=== PATIENT | male | born 1950 | race Asian ===

== ENCOUNTER 2016-12-24 14:09 | Inpatient (IN) | payer OTHER, MEDICAID ==
[~2016-12-24] VITALS: Ht 167.6 cm; Wt 80.7 kg
[2016-12-24 14:16] VITALS: BP 151/96
--- NOTE | 2016-12-24 16:32 | NUR ---
PATIENT TO BED 3 AT THIS TIME.
--- NOTE | 2016-12-24 16:48 | NUR ---
PATIENT PRESENTS TO ED WITH RIGHT SCAPULA PAIN RADIATING TO RUE . PT STATES . DENIES N/V/D; SKIN IS PINK/WARM/DRY; AAOX4 WITH EVEN AND STEADY GAIT; LUNGS CLEAR BL; HR EVEN AND REGULAR; PT DENIES ANY FEVER, CP, SOB, OR COUGH AT THIS TIME; PATIENT STATES PAIN OF 5/10 AT THIS TIME; VSS; PATIENT POSITIONED FOR COMFORT; HOB ELEVATED; BEDRAILS UP X2; BED DOWN. ER MD MADE AWARE OF PT STATUS.
[2016-12-24 17:00] LABS: APPEARANCE,URINE CLEAR (CLEAR); BILIRUBIN,URINE NEGATIVE (NEGATIVE); BLOOD, URINE NEGATIVE (NEGATIVE); COLOR,URINE YELLOW (YELLOW); LEUKOCYTE ESTERASE ,URINE NEGATIVE (NEGATIVE); NITRITE, URINE NEGATIVE (NEGATIVE); PROTEIN,URINE NEGATIVE (NEGATIVE); UGLUCOSE NEGATIVE (NEGATIVE); UROBILINOGEN,URINE 0.2 EU/dL (0.2 - 1)
[2016-12-24] MEDS ORDERED: ASPIRIN 81 MG TAB.CHEW PO ONE (17:00)
[2016-12-24] MEDS ORDERED: NITROGLYCERIN 0.4 MG TAB SL ONE (17:00)
--- NOTE | 2016-12-24 17:00 | NUR ---
EKG AT BEDSIDE
--- NOTE | 2016-12-24 17:09 | NUR ---
XRAY AT BEDSIDE
--- NOTE | 2016-12-24 17:21 | NUR ---
BLOOD PRESSURE 124/78 BEFORE NITRO ADMINISTRATION, VSS, WILL CONTINUE TO MONITOR
[2016-12-24 17:48] LABS: BASOPHILS # (AUTO) 0.2 K/uL (0.00-0.22); EOSINOPHILS # (AUTO) 0.2 K/uL (0-0.4); HEMATOCRIT 46.5 % (36-52); HEMOGLOBIN 14.7 g/dL (12.0-18.0); LYMPHOCYTES # (AUTO) 1.3 K/uL (2.0-11.5); LYMPHOCYTES % (AUTO) 20.3 % (20.5-51.1); MEAN CORPUSCULAR HEMOGLOBIN 27 pg (27-31); MEAN CORPUSCULAR HGB CONC 32 g/dL (33-37); MEAN CORPUSCULAR VOLUME 86 fL (80-94); MONOCYTES # (AUTO) 0.4 K/uL (0.8-1.0); NEUTROPHILS # (AUTO) 4.3 K/uL (1.8-7.7); PLATELET COUNT (AUTO) 274 K/uL (140-450); RED BLOOD CELL COUNT(AUTO) 5.38 MIL/uL (4.20-6.10); RED CELL DISTRIBUTION WIDTH 13.4 % (11.6-13.7); WHITE BLOOD COUNT (AUTO) 6.4 K/uL (4.8-10.8)
[2016-12-24 17:58] LABS: INR 1.1 (0.8-1.2); PARTIAL THROMBOPLASTIN TIME 25.9 secs (22-35.6); PROTHROMBIN TIME 10.8 secs (10.8-13.4)
[2016-12-24 18:01] LABS: ANION GAP 12.1 (8-16); CALCIUM 8.9 mg/dL (8.5-10.1); CARBON DIOXIDE 28.4 mmol/L (21-32); POTASSIUM 4.5 mmol/L (3.5-5.1); TOTAL BILIRUBIN 0.8 mg/dL (0.0-1.0); TOTAL PROTEIN, SERUM 7.4 g/dL (6.4-8.2)
[2016-12-24 18:12] LABS: ALBUMIN 3.7 g/dL (3.4-5.0); CREATININE 1.2 mg/dL (0.6-1.3)
--- NOTE | 2016-12-24 18:15 | NUR ---
Patient appears to be resting comfortably in bed. Vital Signs within normal limits. Respirations even and unlabored.
[2016-12-24] MEDS ORDERED: SUCR1TAB35 PO (18:45)
[2016-12-24] MEDS ORDERED: OMEP40EC14 PO (18:46)
[2016-12-24] MEDS ORDERED: ASPI81CT2 PO (18:48)
[2016-12-24] MEDS ORDERED: ATOR20TA PO (18:49)
[2016-12-24] MEDS ORDERED: LOSA50TA39 PO (18:50)
[2016-12-24] MEDS ORDERED: [UNRECOGNIZED DRUG - CODE] PO (18:51)
--- NOTE | 2016-12-24 19:10 | NUR ---
Patient will be admitted to care of DR RECINOS. Admited to TELE. Will go to room 111-A. Belongings list completed. Report to JUDITH VENTURA.
[2016-12-24] MEDS ORDERED: LORazepam 1 MG TAB PO PRN (19:30)
[2016-12-24] MEDS ORDERED: ALUMINUM HYD/MAG/SIMETHICONE 30 ML UDC PO PRN (19:30)
[2016-12-24] MEDS ORDERED: ZOLPIDEM 5 MG TAB PO PRN (19:30)
[2016-12-24] MEDS ORDERED: NITROGLYCERIN 0.4 MG TAB SL PRN (19:30)
[2016-12-24] MEDS ORDERED: MORPHINE SULFATE 2 MG/ML SYR IVP PRN (19:30)
[2016-12-24] MEDS ORDERED: ONDANSETRON 4 MG/2 ML VIAL IVP PRN (19:30)
[2016-12-24] MEDS ORDERED: HYDROcodone/APAP 5/325 MG 1 TAB TAB PO PRN ×2 (19:30)
--- NOTE | 2016-12-24 19:30 | NUR ---
ADMITTED THIS 66 YEAR OLD MALE PER EFREN FROM ER WITH CC OF RT UPPER BACK PAIN AND EPIGASTRIC PAIN, ASSESSMENT DONE, SERBIAN SPEAKING BUT CAN UNDERSTAND AND SPEAK GREENLAND[place], VITAL SIGNS STABLE, DENIES ANY PAIN AT THIS TIME, ORIENTED TO ROOM AND CALL LIGHT, SAFETY MEASURES IN PLACE, CALL LIGHT WITHIN REACH.
[2016-12-24 20:00] VITALS: BP 116/71
--- NOTE | 2016-12-24 21:40 | NUR ---
PT AMBULATORY TO [facility] WITH STEADY GAIT, ALL NEEDS ATTENDED.
[2016-12-25] VITALS: BP 117/71
--- NOTE | 2016-12-25 | NUR ---
PT AWAKE WATCHING MOVIE ON HIS TABLET, VITAL SIGNS STABLE, DENIES ANY PAIN, CONTINUE TO MONITOR CLOSELY.
[2016-12-25 01:49] LABS: CREATINE KINASE MB 0.2 ng/mL (0-3.6)
--- NOTE | 2016-12-25 01:50 | NUR ---
PT STILL AWAKE WATCHING MOVIE ON HIS TABLET, OFFERED SLEEPING PILL BUT PT REFUSED SAID "IM JASEN", DENIES ANY PAIN, MONITORED CLOSELY.
[2016-12-25] MEDS: ACETAMINOPHEN 325 MG TAB PO PRN ×2 (03:09→12:53)
[2016-12-25 04:00] VITALS: BP 134/76
--- NOTE | 2016-12-25 04:00 | NUR ---
PT SLEEPING, VITAL SIGNS STABLE, DENIES ANY PAIN, MONITORED CLOSELY.
[2016-12-25 06:23] LABS: BASOPHILS # (AUTO) 0.2 K/uL (0.00-0.22); BASOPHILS % (AUTO) 2.5 % (0.0-2.0); EOSINOPHILS # (AUTO) 0.4 K/uL (0-0.4); HEMATOCRIT 43.1 % (36-52); LYMPHOCYTES % (AUTO) 32.7 % (20.5-51.1); MEAN CORPUSCULAR HEMOGLOBIN 28 pg (27-31); MEAN CORPUSCULAR HGB CONC 33 g/dL (33-37); MEAN CORPUSCULAR VOLUME 87 fL (80-94); MONOCYTES # (AUTO) 0.5 K/uL (0.8-1.0); MONOCYTES % (AUTO) 8.6 % (1.7-9.3); NEUTROPHILS # (AUTO) 3.1 K/uL (1.8-7.7); NEUTROPHILS % (AUTO) 50.2 % (42.2-75.2); PLATELET COUNT (AUTO) 271 K/uL (140-450); RED BLOOD CELL COUNT(AUTO) 4.96 MIL/uL (4.20-6.10); RED CELL DISTRIBUTION WIDTH 13.3 % (11.6-13.7); WHITE BLOOD COUNT (AUTO) 6.2 K/uL (4.8-10.8)
[2016-12-25 06:37] LABS: ANION GAP 11.2 (8-16); CALCIUM 8.6 mg/dL (8.5-10.1); CARBON DIOXIDE 28.1 mmol/L (21-32); CREATININE 1.2 mg/dL (0.6-1.3); POTASSIUM 4.3 mmol/L (3.5-5.1)
[2016-12-25 06:55] LABS: MAGNESIUM 2.2 mg/dL (1.8-2.4); PHOSPHORUS 3.9 mg/dL (2.5-4.9)
--- NOTE | 2016-12-25 07:25 | NUR ---
PT AWAKE, NO SIGNS OF DISTRESS, REPORT GIVEN TO AUDREY THACKER FOR CONTINUITY OF CARE.
--- NOTE | 2016-12-25 07:26 | NUR ---
RECEIVED PT FROM THE EXT JS DEVELOPER NURSE. PT IS AWAKE AND ORIENTED. INTRODUCED MYSELF AND UPDATED THE BOARD. PT IS 66/Y GUAMAN[place] MALE. SPEAKS SOME ARMENIAN. V/S WITHIN NORMAL RANGE. AMBULATORY. HE WAS UP AND ABOUT WASHING HIS FACE AND BRUSHING TEETH. SKIN INTACT. IV ON L AC 20G SL. WAITING ON 3RD TROPONIN LEVEL. LAST 2 NEGATIVE. DENIES ANY PAIN. WILL CONTINUE TO MONITOR PT.
[2016-12-25 08:00] VITALS: BP 134/96
[2016-12-25] MEDS: DOCUSATE SODIUM 100 MG GELCAP PO SCH (08:16)
--- NOTE | 2016-12-25 08:17 | NUR ---
MORNING MEDS ADMINISTERED. PT TOLERATED WELL. ATE 100% OF BREAKFAST. WILL CONTINUE TO MONITOR PT.
--- NOTE | 2016-12-25 08:25 | NUR ---
PATIENT HAS BEEN SCREENED AND CATEGORIZED MODERATE NUTRITION RISK. PATIENT WILL BE SEEN WITHIN 3-5 DAYS OF ADMISSION. 12/27/16-12/29/[address]
[2016-12-25 09:41] LABS: CREATINE KINASE MB 0.3 ng/mL (0-3.6)
--- NOTE | 2016-12-25 10:23 | NUR ---
PT SLEEPING SOUNDLY. NO SIGNS OF DISTRESS. WILL CONTINUE TO MONITOR PT.
[2016-12-25 12:00] VITALS: BP 139/95
--- NOTE | 2016-12-25 12:53 | NUR ---
ADMINISTERED TYLENOL PER PT'S REQUEST. PT STATES HE HAS A CHRIS 3-10/07. WILL CONTINUE TO MONITOR PT.
--- NOTE | 2016-12-25 15:20 | NUR ---
DR. RECINOS CAME AND SAW PT. ORDERED CARDIO CONSULT AND U/S OF THE HEART. [employer] TECH HERE TO DO. AFTER THE TEST AND CONSULT, PER MD, HE CAN BE DISCHARGED.
[2016-12-25] MEDS ORDERED: MECLIZINE 25 MG TAB PO PRN (15:30)
[2016-12-25 16:00] VITALS: BP 122/77
--- NOTE | 2016-12-25 17:59 | NUR ---
PT IS RESTING COMFORTABLY IN BED, WATCHING TV. NO COMPLAINTS AT THIS TIME. WILL CONTINUE TO MONITOR PT.
--- NOTE | 2016-12-25 19:15 | NUR ---
ENDORSED PT TO THE DRILLER MACHINE NURSE AT BEDSIDE FOR CONTINUITY OF CARE. PT IS IN STABLE CONDITION.
--- NOTE | 2016-12-25 19:30 | NUR ---
RECEIVED REPORT FROM AM NURSE. PT RESTING IN BED, AOX4, ABLE TO VERBALIZE NEEDS. PT DENIES CHEST PAIN, SOB OR S/S OF ACUTE DISTRESS. TINT LAYER IN PLACE. IV ACCESS ASYMPTOMATIC, PATENT AND INTACT. SALINE LOCKED. DISCUSSED AND REVIEWED PLAN OF CARE WITH PT. PT VERBALIZED UNDERSTANDING. SAFETY MEASURES ENSURED. CALL LIGHT WITHIN REACH. WILL CONTINUE TO MONITOR.
[2016-12-25 20:00] VITALS: BP 130/94
--- NOTE | 2016-12-25 20:54 | NUR ---
ADMINISTERED DUE MEDICATION WITH EDUCATION. PT VERBALIZED UNDERSTANDING, TOLERATED MED WELL. SAFETY MEASURES ENSURED. CALL LIGHT WITHIN REACH. WILL CONTINUE TO MONITOR.
[2016-12-26] VITALS: BP 102/44
[2016-12-26] MEDS: ACETAMINOPHEN 325 MG TAB PO PRN
--- NOTE | 2016-12-26 | NUR ---
VS NOTED. CONDITION STABLE. ALL NEEDS MET. SAFETY MEASURES ENSURED. CALL LIGHT WITHIN REACH. WILL CONTINUE TO MONITOR.
[2016-12-26 04:00] VITALS: BP 126/80
--- NOTE | 2016-12-26 04:15 | NUR ---
VS NOTED. CONDITION STABLE. ALL NEEDS MET. SAFETY MEASURES ENSURED. CALL LIGHT WITHIN REACH. WILL CONTINUE TO MONITOR.
[2016-12-26 06:56] LABS: BASOPHILS # (AUTO) 0.2 K/uL (0.00-0.22); BASOPHILS % (AUTO) 2.3 % (0.0-2.0); EOSINOPHILS # (AUTO) 0.3 K/uL (0-0.4); EOSINOPHILS % (AUTO) 4.7 % (0.0-4.0); HEMATOCRIT 45.1 % (36-52); HEMOGLOBIN 14.6 g/dL (12.0-18.0); LYMPHOCYTES # (AUTO) 2.5 K/uL (2.0-11.5); LYMPHOCYTES % (AUTO) 37.3 % (20.5-51.1); MEAN CORPUSCULAR HEMOGLOBIN 28 pg (27-31); MEAN CORPUSCULAR HGB CONC 32 g/dL (33-37); MEAN CORPUSCULAR VOLUME 87 fL (80-94); MONOCYTES # (AUTO) 0.6 K/uL (0.8-1.0); MONOCYTES % (AUTO) 8.6 % (1.7-9.3); NEUTROPHILS # (AUTO) 3.1 K/uL (1.8-7.7); NEUTROPHILS % (AUTO) 47.1 % (42.2-75.2); PLATELET COUNT (AUTO) 288 K/uL (140-450); RED BLOOD CELL COUNT(AUTO) 5.18 MIL/uL (4.20-6.10); RED CELL DISTRIBUTION WIDTH 13.1 % (11.6-13.7); WHITE BLOOD COUNT (AUTO) 6.7 K/uL (4.8-10.8)
[2016-12-26 07:07] LABS: ANION GAP 10.8 (8-16); CARBON DIOXIDE 28.5 mmol/L (21-32); CREATININE 1.3 mg/dL (0.7-1.3); POTASSIUM 4.3 mmol/L (3.5-5.1)
--- NOTE | 2016-12-26 07:35 | NUR ---
ENDORSED PLAN OF CARE TO AM NURSE. CONDITION STABLE.
--- NOTE | 2016-12-26 07:36 | NUR ---
RECEIVED REPORT FROM PM NURSE. PT SITTING IN BED, AOX4, ABLE TO VERBALIZE NEEDS. DENIES CHEST PAIN. NO S/SX OF DISTRESS. NO SOB NOTED. MAINTENANCE GROUNDSKEEPER IN PLACE. WITH AN IV ON L AC 20 G, SALINE LOCKED, PATENT AND INTACT. DISCUSSED WITH PT THE PLAN OF CARE. SAFETY CHECKS IN PLACE. CALL LIGHT WITHIN REACH. WILL CONTINUE TO MONITOR FOR ANY CHANGES.
[2016-12-26 08:00] VITALS: BP 124/80
[2016-12-26] MEDS: DOCUSATE SODIUM 100 MG GELCAP PO SCH (09:51)
--- NOTE | 2016-12-26 09:53 | NUR ---
DUE MEDS GIVEN AND EDUCATED PT ON THE MEDICATION. WILL CONTINUE TO MONITOR. ALL NEEDS ATTENDED. CALL LIGHT WITHIN REACH.
[2016-12-26 12:00] VITALS: BP 128/72
--- NOTE | 2016-12-26 12:30 | NUR ---
PATIENT SEEN ON BED TALKING WITH AT BEDSIDE. WILL CONTINUE TO MONITOR. ALL NEEDS ATTENDED. CALL LIGHT WITHIN REACH. WILL CONTINUE TO MONITOR FOR ANY CHANGES.
--- NOTE | 2016-12-26 15:15 | NUR ---
MESSAGE LEFT TO BETO (DR. GABRIEL'S SALESPERSON FLORIST SUPPLIES) REGARDING THE CONSULT. AWAITING FOR CALL BACK.
[2016-12-26 16:00] VITALS: BP 116/69
--- NOTE | 2016-12-26 16:11 | NUR ---
SPOKE WITH DR. GABRIEL AND NOTIFIED WITH THE NEURO CONSULT. STATED HE IS ALREADY AWARE AND WILL SEE PT TODAY.
--- NOTE | 2016-12-26 19:20 | NUR ---
ENDORSED TO SHOVEL LOG LOADER OPERATOR FOR CONTINUITY OF CARE.
--- NOTE | 2016-12-26 19:30 | NUR ---
RECEIVED REPORT FROM AM NURSE. PT RESTING IN BED, AOX4, ABLE TO VERBALIZE NEEDS. PT DENIES CHEST PAIN, SOB OR S/S OF ACUTE DISTRESS. MATERIALS HANDLING COORDINATOR IN PLACE. IV ACCESS ASYMPTOMATIC, PATENT AND INTACT. SALINE LOCKED. DISCUSSED AND REVIEWED PLAN OF CARE WITH PT. PT VERBALIZED UNDERSTANDING. SAFETY MEASURES ENSURED. CALL LIGHT WITHIN REACH. WILL CONTINUE TO MONITOR.
[2016-12-26 20:00] VITALS: BP 100/75
--- NOTE | 2016-12-26 21:23 | NUR ---
ADMINISTERED DUE MEDICATION WITH EDUCATION. PT VERBALIZED UNDERSTANDING, TOLERATED MED WELL. ALL NEEDS MET. SAFETY MEASURES ENSURED. CALL LIGHT WITHIN REACH. WILL CONTINUE TO MONITOR.
[2016-12-27] VITALS: BP 124/81
--- NOTE | 2016-12-27 00:10 | NUR ---
PT RESTING COMFORTABLY IN BED. ALL NEEDS MET. NO S/S OF ACUTE DISTRESS. SAFETY MEASURES ENSURED. CALL LIGHT WITHIN REACH.
[2016-12-27 04:00] VITALS: BP 104/71
--- NOTE | 2016-12-27 04:13 | NUR ---
CONDITION STABLE. DENIES PAIN. ALL NEEDS MET. SAFETY MEASURES ENSURED. CALL LIGHT WITHIN REACH. WILL CONTINUE TO MONITOR.
--- NOTE | 2016-12-27 07:27 | NUR ---
ENDORSED PLAN OF CARE TO AM NURSE. CONDITION STABLE.
--- NOTE | 2016-12-27 07:29 | NUR ---
RECEIVED PT IN BED. AWAKE. ALERT ORIENTED X4. NO SOB NOTED. DENIES ANY PAIN OR DISCOMFORT AT THIS TIME. POSITIVE BOWEL SOUNDS NOTED ON FOUR QUADRANTS. PT AMBULATORY. SAFETY PRECAUTION IN PLACE. CALL LIGHT WITHIN REACH.
[2016-12-27 08:00] VITALS: BP 109/76
[2016-12-27] MEDS: DOCUSATE SODIUM 100 MG GELCAP PO SCH (08:37)
[2016-12-27 12:00] VITALS: BP 111/83
--- NOTE | 2016-12-27 13:04 | NUR ---
ZOHRA OF PATIENT CAME TO SEE PT. INQUIRED ABOUT WHEN PT IS GOING HOME. ZOHRA MADE AWARE THAT WE ARE STILL WAITING FOR DR. RECINOS TO SEE PT, BEFORE DISCHARGE ORDERS CAN BE MADE. VERBALIZED UNDERSTANDING.
[2016-12-27 16:00] VITALS: BP 119/91
--- NOTE | 2016-12-27 19:26 | NUR ---
PT CLEARED FOR DISCHARGE. DISCHARGE INSTRUCTIONS PROVIDED. PT VERBALIZED UNDERSTANDING. IV TAKEN OUT. TIP INTACT. NO S/S OF ACUTE DISTRESS. PT DENIES PAIN. PT TAKEN OFF UNIT. PT REMAINS STABLE.
== END 2016-12-27 19:25 | disposition home or self-care (01) | DRG 313 ==
LOC: MED 14:09 → MTU 19:29
PROVIDERS: ADMIT Preventive Medicine Preventive Medicine/Occupational Environmental Medicine; ATTEND Preventive Medicine Preventive Medicine/Occupational Environmental Medicine
DX: R07.89 Other chest pain (principal); I25.110 Atherosclerotic heart disease of native coronary artery with unstable angina pectoris; E78.5 Hyperlipidemia, unspecified; I10 Essential (primary) hypertension; K21.9 Gastro-esophageal reflux disease without esophagitis; R51 Headache; R42 Dizziness and giddiness; Z95.1 Presence of aortocoronary bypass graft; Z87.891 Personal history of nicotine dependence; Z79.82 Long term (current) use of aspirin; Z79.899 Other long term (current) drug therapy
CPT/HCPCS: 36415; 71010; 80048; 80053; 81003; 82550; 82553; 83735; 83880; 84100; 84484; 85025; 85610; 85730; 87081; 93005; 93880; 99285; J1644; Q0092